=== PATIENT | male | born 1960 | race Caucasian/White ===

== ENCOUNTER 2016-10-25 19:46 | Inpatient (IN) ==
[2016-10-25] MEDS ORDERED: 0.9 % Sodium Chloride 1,000 ML IVC ONE ×3 (19:58→21:17)
[2016-10-25] MEDS ORDERED: Ondansetron 4 MG/2 ML VIAL IVP ONE (19:58)
--- NOTE | 2016-10-25 20:18 | Emergency Department Note ---
Disposition Clinical Impression: Colitis, Nodule on liver Pancreatitis Qualifiers: Chronicity: acute Pancreatitis type: unspecified pancreatitis type Acute pancreatitis complication: unspecified Qualified Code(s): K85.90 - Acute pancreatitis without necrosis or infection, unspecified Disposition: Admitted As Inpatient Condition: Fair Forms: ED Satisfaction Letter Time of Disposition: 00:10 GI Bleed HPI - General Chief complaint: ED GI Bleed Stated complaint: Rectal Bleeding Time Seen by Provider: 10/25/16 19:57 Source: patient Limitations: no limitations Nursing Notes Reviewed: Yes Vital Signs Reviewed: Yes - History of Present Illness HPI Narrative: Patient is a 56-year-old male who presents via EMS from the [place] for rectal bleeding. Patient states that 20 hours ago he noticed right red blood in his stool and continued to have repeated bouts. Patient states that he has lower abdomen irritation 3/10 constant. Patient reports anorexia and states that he has to force-feed himself. Patient states he has not had a colonoscopy in over 10 years. Patient has a history of CABG, diabetes and below knee amputation. Patient is on clopidogrel Patient denies alcohol abuse and states he has not had a drink in 3 months Pt Subjective Complaint: gross bloody stools Onset (ago): hour(s) Consistency: constant Severity: mild Improves with: nothing Worsens with: nothing - Related Data Home Medications Medication Instructions Recorded Confirmed Insulin Glargine [Lantus] 55 unit SQ BID 10/05/15 03/24/16 Metoprolol Succinate 100 mg PO DAILY 10/05/15 03/24/16 Nitroglycerin [Nitrostat] 0.4 mg SL AD PRN 10/05/15 03/24/16 OXcarbazepine [Oxcarbazepine] 600 mg PO QPM 10/05/15 03/24/16 Ranolazine [Ranexa] 1,000 mg PO BID 10/05/15 03/24/16 lamoTRIgine [Lamotrigine] 200 mg PO HS 10/05/15 03/24/16 Atorvastatin Calcium [Lipitor] 80 mg PO DAILY 11/19/15 03/24/16 Loratadine [Allergy Relief] 10 mg PO DAILY 01/20/16 03/24/16 Spironolactone [Aldactone] 12.5 mg PO DAILY 01/20/16 03/24/16 lamoTRIgine [Lamictal] 100 mg PO QAM 10/27/16 12/30/16 Torsemide [Demadex] 10 mg PO DAILY 03/24/16 03/24/16 Acetaminophen [Tylenol] 1,000 mg PO TID PRN 10/25/16 10/25/16 Exenatide Microspheres [Bydureon 2 mg SQ QWEEK 10/25/16 10/25/16 Pen] Gabapentin [Neurontin] 800 mg PO BID 10/25/16 10/25/16 Isosorbide MONOnitrate (24 HR) 90 mg PO DAILY 10/25/16 10/25/16 [Imdur] Lisinopril [Zestril] 5 mg PO DAILY 10/25/16 10/25/16 Polyethylene Glycol 3350 [MiraLAX] 17 gm PO DAILY 10/25/16 10/25/16 amLODIPine [Norvasc] 5 mg PO DAILY 10/25/16 10/25/16 Previous Rx's Medication Instructions Recorded Clopidogrel [Plavix] 75 mg PO DAILY #30 tablet 11/22/15 Nystatin Cream [Mycostatin Cream] 1 appl TP BID 21 Days 11/22/15 Allergies Allergy/AdvReac Type Severity Reaction Status Date / Time Penicillins Allergy See Verified 03/24/16 12:41 Comments All systems ED: reviewed and negative except as stated. Review of Systems: As Per HPI Constitutional: Denies: fever, chills, weakness Eyes: Denies: eye pain, eye discharge, vision change ENT ED: Denies: ear pain, throat pain Cardiovascular: Denies: chest pain, palpitations, dyspnea on exertion Respiratory: Denies: cough, dyspnea Gastrointestinal: Reports: abdominal pain, hematochezia. Denies: nausea, vomiting, diarrhea Genitourinary: Denies: urgency, dysuria Musculoskeletal: Denies: back pain, neck pain Integumentary: Denies: rash, abrasion Neurological: Denies: headache, weakness Psychiatric: Denies: anxiety, depression Endocrine: Denies: fatigue Hematological/Lymphatic: Denies: easy bruising Allergic/Immunologic: Denies: facial swelling Past Medical History - Past Medical History Attestation: Yes The following information was validated with the patient. Source: patient, old records reviewed Medical history: Reports: arthritis, coronary artery disease, diabetes, hyperlipidemia, hypertension, myocardial infarction, peripheral artery disease, other Surgical history: Reports: cholecystectomy, coronary bypass (CABG), orthopedic, other Psychiatric history: Reports: depression - Social History Smoking Status: Former smoker Smokeless Tobacco Status: Yes Alcohol use: Reports: none Drug use: Reports: none Physical Exam Vital Signs Temperature 98.9 F 10/25/16 19:50 Pulse Rate 74 10/25/16 19:50 Respiratory Rate 14 10/25/16 19:50 Blood Pressure 142/88 10/25/16 19:50 O2 Sat by Pulse Oximetry 100 10/25/16 19:50 Temperature 98.9 F 10/25/16 19:50 Pulse Rate 74 10/25/16 19:50 Respiratory Rate 14 10/25/16 19:50 Blood Pressure 142/88 10/25/16 19:50 O2 Sat by Pulse Oximetry 100 10/25/16 19:50 Oxygen Delivery Oxygen Delivery Room Air -General Appearance: Patient is a 56-year-old male who is alert and oriented 3 and appears to be in no acute distress. Patient sits up last jokes and is enjoyable and pushed talk with. Patient displays mild discomfort when he touches his lower abdominal ibanez. -Neurological exam: Cranial nerves II-12 intact, no focal deficits observed, strength equal 5/5 bilaterally in upper extremities and left lower extremity patient has prostatic on right lower extremity secondary to below-knee amputation - Head Head exam: atraumatic, normocephalic, normal inspection - Eye Eye exam: Present: normal appearance, PERRL, EOMI, negative for scleral icterus negative for conjunctival pallor - ENT ENT exam: normal exam, normal oropharynx, mucous membranes moist - Neck Neck exam: Present: normal inspection, full ROM, trachea midline, negative JVD - Chest Chest inspection: Present: Patient has bilateral equal rise and fall of chest wall. Non-tender to palpation. - Respiratory Respiratory exam: Clear to auscultation bilaterally without wheezes rales or rhonchi Cardiovascular Cardiovascular exam: Present: regular rate, normal rhythm, normal heart sounds, without murmurs rubs or gallops. - Abdominal Exam Abdominal exam: Present: soft, nondistended, tender to palpation across patient' s lower abdomen Bowel sounds normoactive throughout all 4 quadrants. Negative for hyper or hyperresonance. - Extremities Exam Extremities exam: Present: normal inspection, full ROM, patient has below the knee amputation of right lower extremity - Back Exam Back exam: Present: normal inspection, full ROM. Absent: tenderness, CVA tenderness (R), CVA tenderness (L) - Psychiatric Psychiatric exam: Present: normal affect, normal mood - Skin Skin exam: Present: warm, dry, intact, normal color - General Limitations: no limitations General appearance: alert - Head Head exam: atraumatic, normocephalic - Eye Eye exam: Present: normal appearance, PERRL, EOMI Course - Consultations Consultation #1: Dr. Lane hospitalist has accepted patient for admission after discussion of patient's comorbidities and current findings of pancreatitis and rectosigmoid colitis Time: 22:03 Vital Signs Temperature 98.9 F 10/25/16 19:50 Pulse Rate 74 10/25/16 19:50 Respiratory Rate 14 10/25/16 19:50 Blood Pressure 142/88 10/25/16 19:50 O2 Sat by Pulse Oximetry 100 10/25/16 19:50 Temperature 98.9 F 10/25/16 19:50 Pulse Rate 74 10/25/16 19:50 Respiratory Rate 14 10/25/16 19:50 Blood Pressure 142/88 10/25/16 19:50 O2 Sat by Pulse Oximetry 100 10/25/16 19:50 Oxygen Delivery Oxygen Delivery Room Air GI Bleed - [facility] Narrative Medical decision making narrative: Patient's presentation is concerning for lower GI bleed secondary to possible AVM, polyp, hemorrhoids, masses upper GI bleed, ischemic colitis, aortoenteric fistula. Patient's labs taking at the [place] shows highly elevated lipase greater than [address] of the abdomen and pelvis was taken which shows rectosigmoid colitis, concerning findings of the patient's liver show nodularity. Patient started on Cipro and Flagyl, IV fluids. Patient is received 1 L currently and is receiving a second followed by third liter. Recommend patient continues to receive IV fluids. Patient is comfortable and has no complaints at this time. Vital signs show mildly elevated blood pressure but otherwise everything is normal ranges. Patient's labs repeated here which shows a decrease in patient's lipase but patient has an elevation of troponin of 0.04. Patient's BUN and creatinine appears to be close to patient's baseline. Patient's EKG shows no alarming features. Patient has a paced rhythm. Patient does not complain of any chest pain symptoms or discomfort. Patient has a [address] Lane. His been briefed on patient's condition and treatment course and has accepted to continue treatment in hospital. Patient understands and agrees to the treatment plan. - Medical Records Medical records reviewed: Yes I reviewed the patient's medical records. - Lab Data Lab results reviewed: Yes I reviewed the patient's lab results. Lab results narrative: Short CBC 10/25/16 Range/Units 20:39 WBC 11.7 H (4.3-11.1) K/mcL Hgb 14.9 (12.9-16.9) g/dL Hct 45.8 (37.5-50.1) % Plt Count 155 (140-400) K/mcL Neutrophils # 8.0 (1.6-8.9) K/mcL BMP 10/25/16 Range/Units 20:39 Sodium 138 (136-145) mEq/L Potassium 4.4 (3.5-4.5) mEq/L Chloride 106 (98-109) mEq/L Carbon Dioxide 27 (19-29) mEq/L BUN 26 (8-26) mg/dL Creatinine 1.76 H (0.72-1.25) mg/dL Glucose 208 H (70-99) mg/dL Calcium 9.4 (8.6-10.8) mg/dL Cardiac Enzymes 10/25/16 Range/Units 20:39 Troponin I 0.04 H* (0-0.03) ng/mL - Radiology Data Radiology results reviewed: Yes I reviewed the patient's radiology results. Abdomen/Pelvis CT 10/25/16 19:58 IMPRESSION: Descending and rectosigmoid colitis, infectious or inflammatory. Morphology of the liver worrisome chronic disease as described above. D/ / Idalia Roche Cha, MD / Idalia Roche Cha, MD Interpreting Provider: Idalia Roche Cha, MD - EKG Data EKG attestation: Yes I reviewed and interpreted this EKG. EKG results narrative: EKG taken to October 2016 at 2031 hrs. shows a electronically ventricular paced rhythm at a rate of [address] elevations in any leads. Compared to previous EKG morphology exception of inverted T waves in anterior leads, on today's EKG versus previous EKG taken 03/24/2016. It is a paced rhythm and may be nondiagnostic.
[2016-10-25 20:54] LABS: Basophils % 0.3 %; Eosinophils # 0.2 K/mcL (0.0-0.6); Eosinophils % 1.5 %; Hematocrit 45.8 % (37.5-50.1); Hemoglobin 14.9 g/dL (12.9-16.9); Immature Granulocytes % 0.4 % (0-4); Lymphocytes # 2.5 K/mcL (0.6-4.6); Mean Corpuscular HGB Conc 32.5 g/dL (31.6-35.5); Mean Corpuscular Volume 92.3 fL (83.0-100.0); Mean Platelet Volume 12.4 fL (9.4-12.4); Monocytes % 8.2 %; Platelet Count 155 K/mcL (140-400); Red Blood Count 4.96 M/mcL (4.19-5.50); Red Cell Distribution Width 12.6 % (11.5-14.5); Segmented Neutrophils % 68.6 %
[2016-10-25 21:00] LABS: Prothrombin Time 11.3 Seconds (9.4-12.1)
[2016-10-25 21:03] LABS: Activated Partial Thrombo Time 29.2 Seconds (26.0-36.0)
[2016-10-25 21:08] LABS: Calcium 9.4 mg/dL (8.6-10.8); Potassium 4.4 mEq/L (3.5-4.5)
[2016-10-25] MEDS ORDERED: MetroNIDAZOLE 500 MG/100 ML 500 MG/100 ML BAG IVPB ONE (21:17)
--- NOTE | 2016-10-25 21:40 | Emergency Department Note ---
START Narrative - START START: I examined this patient and my medical decision-making was reviewed with the Resident Physician. I agree with the documented findings, disposition and treatment plan as described except to the extent set forth below. In summary 56 -year-old male with history of cholecystectomy presenting with concern for rectal bleeding. He has no history of colitis. He has no recent travel or diarrheal episodes. He denies recent antibiotic use. He presents with nonspecific abdominal wall tenderness as well as rectal bleeding which started today. He has stable hemoglobin. He was sent from the [facility] for further evaluation. He is Hemoccult-positive. Ultimately his son of colitis extensively on CAT scan. He also has a concerning liver morphology. This setting of elevated lipase. I would at this point proceed with admission for further evaluation of possible pancreatitis in the setting of colitis. This could represent underlying acute intra-abdominal pathology which is not clearly evident on CAT scan beyond findings of colitis. I would start empiric treatment with antibiotics including Cipro and Flagyl. Lactate was checked and was normal. IV fluids were initiated for acute kidney injury. Patient be admitted for further evaluation. I spent greater than 35 minutes of critical care time after sustaining this acute male suffering from gastrointestinal hemorrhage. This is including billable procedures. Remains in critical condition with high potential for life -threatening deterioration.
[2016-10-26] MEDS ORDERED: Acetaminophen 325 MG TABLET PO PRN (00:01)
[2016-10-26] MEDS ORDERED: Ondansetron 4 MG/2 ML VIAL IVP PRN (00:01)
--- NOTE | 2016-10-26 00:01 | Internal Med History&Physical ---
<Doug Leo - Last Filed: 10/26/16 01:52> Date of Encounter: 10/26/16 Time of Encounter: 23:15 Assessment and Plan (1) BRBPR (bright red blood per rectum) Current visit: Yes Status: Acute - Per patient, it started at midnight of 82 and persisted as he still had bright red blood with bowel movement at 10 pm. - Differential include hemorrhoid, colitis (infectious or inflammatory). - Closely monitor H&H. - Patient may benefit from outpatient colonoscopy after colitis is controlled. (2) Colitis Current visit: Yes Status: Acute - CT A/P suggests descending and rectosigmoid colitis, infectious or inflammatory. - Will check GI infection panel for further evaluation. - Continue Cipro anf Flagyl. (3) Nodule on liver Current visit: Yes Status: Acute - CT A/P showed the morphology of the liver somewhat worrisome for chronic disease with nodular contour, medial segment atrophy as well as hypertrophy of the lateral segment and caudate lobe. No focal hepatic lesion. - Liver US for further evaluation. (4) GERD (gastroesophageal reflux disease) Current visit: Yes Status: Acute - Patient reports worsening acid reflex for 2 weeks. - Will start omeprazole. Qualifiers: Esophagitis presence: esophagitis presence not specified Qualified Code(s) : K21.9 - Gastro-esophageal reflux disease without esophagitis (5) CAD (coronary artery disease) Current visit: No Status: Chronic - CAD s/p CABG. - Continue Plavix, statin, beta-emily and KIKO-i. Qualifiers: Coronary Disease-Associated Artery/Lesion type: bypass graft [place] vs. transplanted heart: [place] heart Associated angina: with unspecified angina Qualified Code(s): I25.709 - Atherosclerosis of coronary artery bypass graft(s) , unspecified, with unspecified angina pectoris (6) Heart failure with reduced ejection fraction Current visit: No Status: Acute - Known history of ischemic cardiomyopathy s/p ICD. - Echo on 09/23/15 showed LVEF 35% with mild diastolic dysfunction. - Continue home dose diuresis. Qualifiers: Heart failure chronicity: chronic Qualified Code(s): I50.22 - Chronic systolic (congestive) heart failure (7) Insulin dependent diabetes mellitus Current visit: No Status: Chronic - Will check Hgb A1C. - Insulin sliding scale. Internal Medicine - H&P: HPI Chief complaint: Bright red blood per rectum Admitted From: Emergency Dept Plans for Post Hospital Care: Home History of present illness: Mr. Voss is a 56 year old male with PMH of GERD, CKD stage 3, HTN, HLD, DM2, PAD s/p BKA, CAD s/p CABG and systolic CHF (LVEF 35% per echo on 09/23/15). Patient was sent from [place] for bright red blood per rectum. Patient reports it started at midnight of 10/25. It's associated with consistent bilateral lower quadrant pain described as "gas-like". Patient reports still having blood at his last bowel at 10 pm. Patient also reports fatigue, one-month history of anorexia and two-week history of worsening acid reflex. Patient denies fever, chills, chest pain, shortness of breath, cough, dysuria, hematuria. Patient denies having unusual or not-fully cooked food recently. Patient denies recent travel or sick contact. Patient states his last EGD & colonoscopy were done in late s and normal at that time. Patient states that [place] has been trying to arrange possible outpatient colonoscopy to be done here. Patient reports no known history of GI problem such as IBD or IBS. Patient is full code. CT A/P in ED suggests descending and rectosigmoid colitis, infectious or inflammatory. Patient was started on Cipro and Flagyl in ED. Past Med Surg Social Fam HX - Past Medical History Medical history: arthritis, coronary artery disease, diabetes, hyperlipidemia, hypertension, myocardial infarction, peripheral artery disease, other Psychiatric history: depression - Past Surgical History Surgical History: cholecystectomy, coronary bypass (CABG), orthopedic, other, AICD, pacemaker - Social History Smoking Status: Former smoker Smokeless Tobacco Status: Yes Alcohol use: none Drug use: none - Family History Mother Adopted: No Family Member Ethnicity: Non- Living Status: Hx Family Cardiac Disorders: Yes Hx Family Respiratory Disorders: No Hx Family Cancer: No Hx Family GI Disorders: Yes ([place]ri[place]) Hx Family Endocrine Disorder: Yes (DM) Hx Family Neuromuscular Disorders: No Hx Family Neurologic Disorders: No Hx Family HEENT Disorders: No Hx Family Autoimmune Disorders: No Father Living Status: Hx Family Cardiac Disorders: Yes ([place]) Hx Family Endocrine Disorder: Yes (DM) Internal Medicine - H&P: Meds Insulin Glargine [Lantus] 55 unit SQ BID 10/05/15 [History] Metoprolol Succinate 200 mg PO DAILY 10/05/15 [History] Nitroglycerin [Nitrostat] 0.4 mg SL Q5M PRN 10/05/15 [History] OXcarbazepine [Oxcarbazepine] 600 mg PO QPM 10/05/15 [History] Ranolazine [Ranexa] 1,000 mg PO BID 10/05/15 [History] lamoTRIgine [Lamotrigine] 200 mg PO HS 10/05/15 [History] Atorvastatin Calcium [Lipitor] 80 mg PO HS 11/19/15 [History] Clopidogrel [Plavix] 75 mg PO DAILY #30 tablet 11/22/15 [Rx] Nystatin Cream [Mycostatin Cream] 1 appl TP BID 21 Days 11/22/15 [Rx] Loratadine [Allergy Relief] 10 mg PO DAILY PRN 01/20/16 [History] Spironolactone [Aldactone] 25 mg PO DAILY 01/20/16 [History] lamoTRIgine [Lamictal] 100 mg PO QAM 01/20/16 [History] Torsemide [Demadex] 10 mg PO DAILY 03/24/16 [History] Acetaminophen [Tylenol] 1,000 mg PO TID PRN 10/25/16 [History] Exenatide Microspheres [Bydureon Pen] 2 mg SQ QWEEK 10/25/16 [History] Gabapentin [Neurontin] 800 mg PO BID 10/25/16 [History] Isosorbide MONOnitrate (24 HR) [Imdur] 90 mg PO DAILY 10/25/16 [History] Lisinopril [Zestril] 5 mg PO DAILY 10/25/16 [History] Polyethylene Glycol 3350 [MiraLAX] 17 gm PO DAILY 10/25/16 [History] amLODIPine [Norvasc] 5 mg PO DAILY 10/25/16 [History] Allergies Penicillins Allergy (Verified 03/24/16 12:41) See Comments Pt does not know what reaction was. All Systems PM: A 10-system review of systems was performed and is negative for pertinent findings except as documented above in the HPI. - Constitutional Constitutional: anorexia, fatigue, no chills, no fever(s) - EENT Eyes: no change in vision Ears: no decreased hearing Nose, mouth and throat: no dysphagia, no odynophagia - Cardiovascular Cardiovascular ROS IM: no chest pain, no diaphoresis, no syncope - Respiratory Respiratory: no cough, no dyspnea, no hemoptysis - Gastrointestinal Gastrointestinal: as per HPI - Genitourinary Genitourinary ROS male: no difficulty urinating, no dysuria, no hematuria - Musculoskeletal Musculoskeletal ROS IM: no arthralgias, no myalgias - Integumentary Integumentary IM: no pruritus, no rash - Neurological Neurological ROS: numbness (Chronic for left lower leg), no focal weakness - Hematologic/Lymphatic Hematologic/Lymphatic: no easy bleeding, no easy bruising - Constitutional Vitals: Temp Pulse Resp BP Pulse Ox 98.0 F 74 17 129/80 96 10/25/16 22:58 10/25/16 22:58 10/25/16 22:58 10/25/16 22:58 10/25/16 22:58 General appearance: Present: cooperative, A&O X 3, no acute distress, answers questions appropriately - Head Head exam: Present: atraumatic, normocephalic - Eye Eye exam: Present: EOMI, PERRL, conjuntiva pink, sclera anicteric - Neck Neck exam general surgery: Present: supple, trachea midline. Absent: lymphadenopathy - Respiratory Respiratory exam: Present: CTAB. Absent: accessory muscle use, rales, rhonchi, wheezes - Cardiovascular Cardiovascular exam: Present: RRR, +S1, +S2. Absent: diastolic murmur, gallop, rubs, systolic murmur - GI/Abdominal GI/Abdominal exam: Present: normal bowel sounds, soft, tenderness (Mild tenderness at lower quadrants.), no peritoneal signs. Absent: distended - Extremities Exam Extremities exam: Present: warm, radial pulses palpable and symetrical. Absent : calf tenderness, cyanotic, pedal edema Additional comments: Right BKA. - Neurological Exam Neurological exam: Present: CN II-XII intact, oriented X3, no focal deficits. Absent: pronater drift, facial droop, speech deficit - Skin Skin exam: Present: dry, intact, warm Internal Med - H&P Results - Labs CBC & Chem 7: 10/25/16 20:39 10/25/16 20:[address] <[address] A - Last Filed: 10/26/16 03:26> Date of Encounter: 10/25/16 Assessment and Plan (1) CKD (chronic kidney disease) stage 3, GFR 30-59 ml/min Current visit: Yes Status: Chronic stable and at baseline, will avoid nephrotoxins, renally dose all medications, follow BMP (2) Elevated troponin I level Current visit: Yes Status: Acute Chronically elevated, related to his CKD leading to poor clearance, we will follow with AM labs Internal Medicine - H&P: HPI History of present illness: Mr. Voss is a 56 year old male Past Med Surg Social Fam HX - Past Medical History Medical history: renal disease (CKD stage 3) All Systems PM: A 10-system review of systems was performed and is negative for pertinent findings except as documented above in the HPI. - Constitutional Vitals: Temp Pulse Resp BP Pulse Ox 98.0 F 74 17 129/80 96 10/25/16 22:58 10/25/16 22:58 10/25/16 22:58 10/25/16 22:58 10/25/16 22:58 Internal Med - H&P Results - Labs CBC & Chem 7: 10/25/16 20:39 10/25/16 20:39 - Diagnostic Studies CT scan - abdomen Status: image reviewed by me - Attending Attestation I personally interviewed and examined this patient and my medical decision- making was reviewed with the Resident Physician. I agree with the documented findings, disposition and treatment plan as described. History did not reveal any possibility of overt infectious etiology, though no family hx of inflammatory bowel disease he will benefit from colonoscopy as outpatient for further evaluation upon discharge home. Salo Lane MD, MPH Hospitalist
[2016-10-26] MEDS ORDERED: 0.9 % Sodium Chloride 1,000 ML IVC SCH ×2 (00:15→00:35)
[2016-10-26] MEDS ORDERED: Nitroglycerin 0.4 MG TAB.SUBL SL PRN (00:35)
[2016-10-26] MEDS ORDERED: D5% in Water 1,000 ML IVC PRN (01:43)
[2016-10-26] MEDS ORDERED: Dextrose Gel 15 GM PO PRN ×2 (01:43)
[2016-10-26] MEDS ORDERED: *HR* Dextrose 50 % in Water (Syg) 50 ML SYRINGE IVP PRN (01:43)
[2016-10-26 04:28] LABS: Adenovirus F 40/41 PCR Not detected (Not detect); Astrovirus PCR Not detected (Not detect); C.difficile Toxin A/B by PCR Not detected (Not detect); Campylobacter by PCR Not detected (Not detect); Cryptosporidium by PCR Not detected (Not detect); Cyclospora cayetanensis PCR Not detected (Not detect); E. coli O157 by PCR Not detected (Not detect); Entamoeba histolytica PCR Not detected (Not detect); Enteroaggregative E.coli(EAEC) Not detected (Not detect); Enteropathogenic E.coli(EPEC) Not detected (Not detect); Enterotoxigenic E.coli (ETEC) Not detected (Not detect); Giardia lamblia PCR Not detected (Not detect); Norovirus GI/GII PCR Not detected (Not detect); Plesiomonas shigelloides PCR Not detected (Not detect); Rotavirus A PCR Not detected (Not detect); Salmonella PCR Not detected (Not detect); Sapovirus PCR Not detected (Not detect); Shig/EnteroinvasiveE coli EIEC Not detected (Not detect); Shigalike tox-prod E coli STEC Not detected (Not detect); Vibrio PCR Not detected (Not detect); Vibrio cholerae PCR Not detected (Not detect); Yersinia enterocolitica PCR Not detected (Not detect)
[2016-10-26] MEDS ORDERED: Insulin LISPRO 300 UNITS/3 ML VIAL SQ SCH ×3 (06:00→21:00)
[2016-10-26 06:12] LABS: Basophils % 0.3 %; Eosinophils # 0.2 K/mcL (0.0-0.6); Eosinophils % 1.7 %; Hematocrit 43.6 % (37.5-50.1); Hemoglobin 14.2 g/dL (12.9-16.9); Immature Granulocytes % 0.3 % (0-4); Lymphocytes # 2.1 K/mcL (0.6-4.6); Lymphocytes % 21.6 %; Mean Corpuscular HGB Conc 32.6 g/dL (31.6-35.5); Mean Corpuscular Hemoglobin 30.1 pg (28.0-33.3); Mean Corpuscular Volume 92.4 fL (83.0-100.0); Mean Platelet Volume 12.7 fL (9.4-12.4); Monocytes # 0.7 K/mcL (0.0-1.3); Monocytes % 7.3 %; Neutrophils # 6.7 K/mcL (1.6-8.9); Platelet Count 109 K/mcL (140-400); Red Blood Count 4.72 M/mcL (4.19-5.50); Red Cell Distribution Width 12.7 % (11.5-14.5); Segmented Neutrophils % 68.8 %
[2016-10-26 06:27] LABS: Albumin 3.3 g/dL (3.5-5.0); Bilirubin,Total 0.7 mg/dL (0.2-1.2); Calcium 8.8 mg/dL (8.6-10.8); Globulin 3.3 g/dL (2.4-3.5); Potassium 3.9 mEq/L (3.5-4.5); Total Protein 6.6 g/dL (6.0-8.3)
[2016-10-26 06:35] LABS: Hemoglobin A1C 7.6 %
[2016-10-26] MEDS: Isosorbide MONOnitrate (24 HR) 30 MG TAB.ER.24H PO SCH (08:47)
[2016-10-26] MEDS: lamoTRIgine 100 MG TABLET PO SCH (08:48)
[2016-10-26] MEDS: Ranolazine 500 MG TAB.ER.12H PO SCH ×2 (08:48→20:48)
[2016-10-26] MEDS: amLODIPine 5 MG TABLET PO SCH (08:48)
[2016-10-26] MEDS: Metoprolol XL (24 HR) Succ 50 MG TAB.ER.24H PO SCH (08:48)
[2016-10-26] MEDS: MetroNIDAZOLE 500 MG/100 ML 500 MG/100 ML BAG IVPB SCH ×3 (08:49→23:52)
[2016-10-26] MEDS: Spironolactone 25 MG TABLET PO SCH (08:51)
[2016-10-26] MEDS: Nystatin Cream 15 GM TUBE TP SCH ×2 (08:52→20:10)
[2016-10-26] MEDS ORDERED: Torsemide 20 MG TABLET PO SCH (09:00)
[2016-10-26] MEDS ORDERED: Gabapentin 400 MG CAPSULE PO SCH (09:00)
--- NOTE | 2016-10-26 10:28 | Internal Med Progress Note ---
Date of Encounter: 10/26/16 Time of Encounter: 10:25 - Assessment and plan (1) BRBPR (bright red blood per rectum) Current Visit: Yes Status: Acute Assessment and plan: Mostly due to ishcemic colitis So far stable Hb Cont close monitoring Held ASA / Plavix - avoid anti platelet medication Consulted GI Dr. Grier.since pt does have stable Hb..cont alexis monitoring given his severe vasculao path history - it could be ishcemic colitis started him on clear liquid diet cont gentle hydration only due to his CHF (2) Colitis Current Visit: Yes Status: Acute Assessment and plan: mostly ishcemic colitis however will cont him on prophylactic abx with Cipro anf Flagyl for 7 days (3) GERD (gastroesophageal reflux disease) Current Visit: Yes Status: Acute Assessment and plan: on PPI Qualifiers: Esophagitis presence: esophagitis presence not specified Qualified Code(s) : K21.9 - Gastro-esophageal reflux disease without esophagitis (4) Pancreatitis Current Visit: Yes Status: Acute Assessment and plan: Unclear etiology will check FLP in AM Reviewed U/S of RUQ - no acute changes trend on lipase Qualifiers: Chronicity: acute Pancreatitis type: unspecified pancreatitis type Acute pancreatitis complication: unspecified Qualified Code(s): K85.90 - Acute pancreatitis without necrosis or infection, unspecified (5) CAD (coronary artery disease) Current Visit: No Status: Chronic Assessment and plan: Held ASA / Plavix due to GI bleed resumed other home meds Qualifiers: Coronary Disease-Associated Artery/Lesion type: bypass graft [place] vs. transplanted heart: [place] heart Associated angina: with unspecified angina Qualified Code(s): I25.709 - Atherosclerosis of coronary artery bypass graft(s) , unspecified, with unspecified angina pectoris (6) Systolic CHF, chronic Current Visit: Yes Status: Chronic Assessment and plan: Not in exacerbation held diuretics for now since he does have GI Bleed resumed other home meds s/p AICD (7) CKD (chronic kidney disease) stage 3, GFR 30-59 ml/min Current Visit: Yes Status: Chronic Assessment and plan: stable (8) Diabetes mellitus Current Visit: Yes Status: Acute Assessment and plan: on ISS Qualifiers: Qualified Code(s): E08.22 - Diabetes mellitus due to underlying condition with diabetic chronic kidney disease (9) DVT prophylaxis Current Visit: Yes Status: Acute Assessment and plan: placed on SCD's only due to GI bleed - Subjective Interval history: Mr. Voss is a 56 year old male with PMH of GERD, CKD stage 3, HTN, HLD, DM2, PAD s/p BKA, CAD s/p CABG and systolic CHF (LVEF 35% per echo on 09/23/15). Patient was sent from [place] for bright red blood per rectum. Patient reports it started at midnight of 10/25. It's associated with consistent bilateral lower quadrant pain described as "gas-like". Pt was admitted for acute bright red blood per rectum with recto sigmoid colitis. Pt stated he still has bloody stools, however pain is little better today. He wants to eat now. Denied any CP / SOB. Denied any similar episodes in the past. Did have constipation history. - Constitutional Vitals: Temp Pulse Resp BP Pulse Ox 98.1 F 75 16 120/78 97 10/26/16 07:53 10/26/16 07:53 10/26/16 07:53 10/26/16 07:53 10/26/16 08:16 General appearance: Present: cooperative, A&O X 3, no acute distress, answers questions appropriately - Head Head exam: Present: atraumatic, normal inspection - Respiratory Respiratory exam: Present: decreased breath sounds. Absent: accessory muscle use, rales, rhonchi, wheezes - Cardiovascular Cardiovascular exam: Present: RRR, +S1, +S2. Absent: systolic murmur - GI/Abdominal GI/Abdominal exam: Present: normal bowel sounds, soft, tenderness (mild discomfort lower abdomne region.). Absent: rebound, rigid, splenomegaly - Extremities Exam Extremities exam: Absent: pedal edema, tenderness - Psychiatric Psychiatric exam: Present: normal affect, normal mood Internal Medicine: Result - Labs CBC & Chem 7: 10/26/16 05:42 10/26/16 05:42 Labs: Short CBC 10/26/16 Range/Units 05:42 WBC 9.7 (4.3-11.1) K/mcL Hgb 14.2 (12.9-16.9) g/dL Hct 43.6 (37.5-50.1) % Plt Count 109 L (140-400) K/mcL Neutrophils # 6.7 (1.6-8.9) K/mcL BMP 10/26/16 05:42 Sodium 139 Potassium 3.9 Chloride 109 Carbon Dioxide 26 BUN 21 Creatinine 1.56 H Glucose 134 H Calcium 8.8 Liver Function 10/26/16 Range/Units 05:42 Total Bilirubin 0.7 (0.2-1.2) mg/dL AST 17 (5-34) Units/L ALT 16 (0-55) Units/L Alkaline Phosphatase 71 (38-126) Units/L Albumin 3.3 L (3.5-5.0) g/dL - ABG Interpretation ABG results: PT/INR, D-dimer PT 11.3 Seconds (9.4-12.1) 10/25/16 20:39 - Impressions Impressions Liver Ultrasound 10/26/16 08:00 IMPRESSION: Heterogeneous echotexture throughout the liver, suggesting diffuse hepatocellular disease such as cirrhosis. D/ / Alfredo Ferrara MD / Alfredo Ferrara MD Interpreting Provider: Alfredo Ferrara MD - Diagnostic Studies CT scan - abdomen Status: image reviewed by me Consult Discharge Plan - Plan [facility]errals: [facility] [Primary Care Provider] -
--- NOTE | 2016-10-26 11:44 | Gastroenterology Consult Note ---
Date of Encounter: 10/26/16 Time of Encounter: 10:35 - Assessment and plan (1) Pancreatitis Current Visit: Yes Status: Acute Assessment and plan: supportive care. Qualifiers: Chronicity: acute Pancreatitis type: unspecified pancreatitis type Acute pancreatitis complication: unspecified Qualified Code(s): K85.90 - Acute pancreatitis without necrosis or infection, unspecified (2) Colitis Current Visit: Yes Status: Acute Assessment and plan: Likely ischemic, resolving. Plan for OTPT scopes. - Time Spent With Patient Total time spent is greater than 50% in coordination of care (as documented) at patient's floor/unit and/or counseling patient: less than 15 minutes GI History of Present Illness - Data of Consult Patient: new to practice Consult date: 10/26/16 Requesting Physician: Mesfin Stevens MD - Consult Narrative Reason for consult: colitis History of present illness: Mr. Voss is a 56 year old male with PMH of GERD, CKD stage 3, HTN, HLD, DM2, PAD s/p BKA, CAD s/p CABG and systolic CHF (LVEF 35% per echo on 09/23/15). Patient was sent from [place] for bright red blood per rectum. Patient reports it started at midnight of 8. It's associated with consistent bilateral lower quadrant pain described as "gas-like". Patient reports still having blood at his last bowel at 10 pm. Patient also reports fatigue, one-month history of anorexia and two-week history of worsening acid reflex. Patient denies fever, chills, chest pain, shortness of breath, cough, dysuria, hematuria. Patient states his last EGD & colonoscopy were done in late and normal at that time. Patient states that [place] has been trying to arrange possible outpatient colonoscopy to be done here. Patient reports no known history of GI problem such as IBD or IBS. Patient is full code. CT A/P in ED suggests descending and rectosigmoid colitis, infectious or inflammatory. Patient was started on Cipro and Flagyl in ED. Denies dysphagia, admits some dyspepsia that he treats at home that has worsened lately. No N/V. BM variable and have been all his life, going several days between movements, then multiple times during the same day until bowel is emptied. Some BRB noted occasionally, no black stools. No family hx of CC to his recollection. Colonoscopy: 90s - wnl per patient EGD: 90s - wnl per patient Past Med Surg Social Fam HX - Past Medical History Medical history: renal disease (CKD stage 3) Psychiatric history: depression - Past Surgical History Surgical History: cholecystectomy, coronary bypass (CABG), orthopedic, other, AICD, pacemaker - Social History Smoking Status: Former smoker Smokeless Tobacco Status: Yes Alcohol use: none Drug use: none - Family History Father Living Status: Hx Family Cardiac Disorders: Yes ([place]) Hx Family Endocrine Disorder: Yes (DM) Mother Adopted: No Family Member Ethnicity: Non- Living Status: Hx Family Cardiac Disorders: Yes Hx Family Respiratory Disorders: No Hx Family Cancer: No Hx Family GI Disorders: Yes ([place]ri[place]) Hx Family Endocrine Disorder: Yes (DM) Hx Family Neuromuscular Disorders: No Hx Family Neurologic Disorders: No Hx Family HEENT Disorders: No Hx Family Autoimmune Disorders: No - Gastrointestinal NSAID use: None noted Anticoagulation Use: PLAVIX Number of BM Per Day: variable Gastrointestinal: Present: abdominal pain, dyspepsia, hematochezia - Constitutional Constitutional: anorexia - EENT Eyes: as per HPI Ears: Present: as per HPI Nose, mouth and throat: Present: as per HPI - Cardiovascular Cardiovascular ROS: Present: as per HPI - Respiratory Respiratory IM: Present: as per HPI - Neurological ROS Neurological GI: Present: as per HPI - Hematologic/Lymphatic Hematologic/Lymphatic pediatric: Present: as per HPI - Musculoskeletal Musculoskeletal ROS GI: Present: as per HPI - Integumentary Integumentary GI: Present: as per HPI - Psychiatric ROS Psychiatric GI: Present: as per HPI - Endocrine Endocrine IM: Present: as per HPI - Constitutional Vitals: Temp Pulse Resp BP Pulse Ox 98.1 F 75 16 120/78 97 10/26/16 07:53 10/26/16 07:53 10/26/16 07:53 10/26/16 07:53 10/26/16 08:16 General appearance: Present: cooperative, A&O X 3, no acute distress, answers questions appropriately - Head Head exam: Present: atraumatic, normocephalic - Eye Eye exam: Present: normal appearance, sclera anicteric - ENT ENT exam: Present: mucous membranes moist - Neck Neck exam general surgery: Present: normal inspection, trachea midline - Respiratory Respiratory exam: Present: CTAB - Cardiovascular Cardiovascular exam: Present: RRR, +S1, +S2 - GI/Abdominal GI/Abdominal exam: Present: normal bowel sounds, soft, tenderness, no peritoneal signs - Rectal Rectal exam: Present: deferred - Extremities Exam Additional comments: BKA - Neurological Exam Neurological exam: Present: no focal deficits - Psychiatric Psychiatric exam: Present: normal affect, normal mood - Skin Skin exam: Present: dry, intact, normal color, warm Results - Labs CBC & Chem 7: 10/26/16 05:42 10/26/16 05:42 Labs: Last Result Calcium 8.8 mg/dL (8.6-10.8) 10/26/16 05:42 Troponin I 0.04 ng/mL (0-0.03) H* 10/25/16 20:39 Entire Visit Hgb 14.2 g/dL (12.9-16.9) 10/26/16 05:42 Hct 43.6 % (37.5-50.1) 10/26/16 05:42 PT 11.3 Seconds (9.4-12.1) 10/25/16 20:39 Total Bilirubin 0.7 mg/dL (0.2-1.2) 10/26/16 05:42 AST 17 Units/L (5-34) 10/26/16 05:42 ALT 16 Units/L (0-55) 10/26/16 05:42 Lipase 228 Units/L (8-78) H 10/25/16 20:39 - ABG ABG results: PT/INR, D-dimer PT 11.3 Seconds (9.4-12.1) 10/25/16 20:39 - Impressions Impressions Liver Ultrasound 10/26/16 08:00 IMPRESSION: Heterogeneous echotexture throughout the liver, suggesting diffuse hepatocellular disease such as cirrhosis. D/ / Alfredo Ferrara MD / Alfredo Ferrara MD Interpreting Provider: Alfredo Ferrara MD Consult Discharge Plan - Plan [facility]errals: [facility] [Primary Care Provider] -
[2016-10-26 13:43] LABS: Hematocrit 40.1 % (37.5-50.1); Hemoglobin 13.2 g/dL (12.9-16.9)
[2016-10-26] MEDS: Insulin DETEMIR 100 UNIT/ML X5UNITS SQ SCH ×2 (14:46→20:50)
[2016-10-26] MEDS: Insulin LISPRO 300 UNITS/3 ML VIAL SQ SCH (17:07)
[2016-10-26] MEDS ORDERED: OXcarbazepine 150 MG TABLET PO SCH (18:00)
[2016-10-26] MEDS: Gabapentin 300 MG CAPSULE PO SCH (20:47)
[2016-10-26] MEDS ORDERED: lamoTRIgine 100 MG TABLET PO SCH (21:00)
[2016-10-26 21:50] LABS: Hematocrit 40.7 % (37.5-50.1); Hemoglobin 13.3 g/dL (12.9-16.9)
[2016-10-27 05:05] LABS: Basophils % 0.5 %; Eosinophils # 0.2 K/mcL (0.0-0.6); Eosinophils % 2.1 %; Hemoglobin 13.7 g/dL (12.9-16.9); Immature Granulocytes % 0.3 % (0-4); Lymphocytes # 2.5 K/mcL (0.6-4.6); Mean Corpuscular HGB Conc 33.4 g/dL (31.6-35.5); Mean Corpuscular Hemoglobin 30.6 pg (28.0-33.3); Mean Corpuscular Volume 91.5 fL (83.0-100.0); Mean Platelet Volume 12.5 fL (9.4-12.4); Monocytes # 0.7 K/mcL (0.0-1.3); Monocytes % 8.8 %; Neutrophils # 4.2 K/mcL (1.6-8.9); Platelet Count 108 K/mcL (140-400); Red Blood Count 4.48 M/mcL (4.19-5.50); Red Cell Distribution Width 12.9 % (11.5-14.5); Segmented Neutrophils % 55.3 %
[2016-10-27 05:29] LABS: Albumin 3.3 g/dL (3.5-5.0); Bilirubin,Total 0.7 mg/dL (0.2-1.2); Calcium 9.1 mg/dL (8.6-10.8); Chol/HDL Ratio 5.5 (0-4.9); Globulin 3.2 g/dL (2.4-3.5); Magnesium 1.6 mg/dL (1.6-2.6); Total Protein 6.5 g/dL (6.0-8.3)
--- NOTE | 2016-10-27 07:48 | Electrocardiograph Report ---
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
--- NOTE | 2016-10-27 08:59 | Discharge Summary ---
Date of Encounter: 10/27/16 Time of Encounter: 08:54 - Discharge Diagnosis (1) BRBPR (bright red blood per rectum) Priority: Primary Status: Acute (2) Colitis Priority: Primary Status: Acute (3) GERD (gastroesophageal reflux disease) Priority: Secondary Status: Acute Qualifiers: Esophagitis presence: esophagitis presence not specified Qualified Code(s) : K21.9 - Gastro-esophageal reflux disease without esophagitis (4) Pancreatitis Priority: Secondary Status: Acute Qualifiers: Chronicity: acute Pancreatitis type: unspecified pancreatitis type Acute pancreatitis complication: unspecified Qualified Code(s): K85.90 - Acute pancreatitis without necrosis or infection, unspecified (5) CAD (coronary artery disease) Priority: Secondary Status: Chronic Qualifiers: Coronary Disease-Associated Artery/Lesion type: bypass graft [place] vs. transplanted heart: [place] heart Associated angina: with unspecified angina Qualified Code(s): I25.709 - Atherosclerosis of coronary artery bypass graft(s) , unspecified, with unspecified angina pectoris (6) Systolic CHF, chronic Priority: Secondary Status: Chronic (7) CKD (chronic kidney disease) stage 3, GFR 30-59 ml/min Priority: Secondary Status: Chronic (8) Diabetes mellitus Priority: Secondary Status: Acute Qualifiers: Qualified Code(s): E08.22 - Diabetes mellitus due to underlying condition with diabetic chronic kidney disease; N18.3 - Chronic kidney disease, stage 3 ( moderate); 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 - Discharge Medications Prescriptions: Ciprofloxacin HCl [Cipro] 250 mg PO BID #10 tab metroNIDAZOLE [Flagyl] 500 mg PO TID #15 tablet Omeprazole [PriLOSEC] 20 mg PO DAILY #30 cap Home Medications: Insulin Glargine [Lantus] 55 unit SQ BID 10/05/15 [History] Metoprolol Succinate 200 mg PO DAILY 10/05/15 [History] Nitroglycerin [Nitrostat] 0.4 mg SL Q5M PRN 10/05/15 [History] OXcarbazepine [Oxcarbazepine] 600 mg PO QPM 10/05/15 [History] Ranolazine [Ranexa] 1,000 mg PO BID 10/05/15 [History] lamoTRIgine [Lamotrigine] 200 mg PO HS 10/05/15 [History] Atorvastatin Calcium [Lipitor] 80 mg PO HS 11/19/15 [History] Nystatin Cream [Mycostatin Cream] 1 appl TP BID 21 Days 11/22/15 [Rx] Loratadine [Allergy Relief] 10 mg PO DAILY PRN 01/20/16 [History] Spironolactone [Aldactone] 25 mg PO DAILY 01/20/16 [History] lamoTRIgine [Lamictal] 100 mg PO QAM 01/20/16 [History] Torsemide [Demadex] 10 mg PO DAILY 03/24/16 [History] Acetaminophen [Tylenol] 1,000 mg PO TID PRN 10/25/16 [History] Exenatide Microspheres [Bydureon Pen] 2 mg SQ QWEEK 10/25/16 [History] Gabapentin [Neurontin] 800 mg PO BID 10/25/16 [History] Isosorbide MONOnitrate (24 HR) [Imdur] 90 mg PO DAILY 10/25/16 [History] Lisinopril [Zestril] 5 mg PO DAILY 10/25/16 [History] amLODIPine [Norvasc] 5 mg PO DAILY 10/25/16 [History] Ciprofloxacin HCl [Cipro] 250 mg PO BID #10 tab 10/27/16 [Rx] Clopidogrel [Plavix] 75 mg PO DAILY #30 tablet 10/27/16 [Rx] Omeprazole [PriLOSEC] 20 mg PO DAILY #30 cap 10/27/16 [Rx] Polyethylene Glycol 3350 [MiraLAX] 17 gm PO DAILY PRN #0 10/27/16 [Rx] metroNIDAZOLE [Flagyl] 500 mg PO TID #15 tablet 10/27/16 [Rx] Allergies/Adverse Reactions: Allergies Penicillins Allergy (Verified 03/24/16 12:41) See Comments Pt does not know what reaction was. 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 Thompson in 1-2 weeks No Aspirin and Plavix for next 5 days. - Diet and Activity Activity: increase activity as tolerated Diet: low salt diet Hospital course: Mr. Voss is a 56 year old male with PMH of GERD, CKD stage 3, HTN, HLD, DM2, PAD s/p BKA, CAD s/p CABG and systolic CHF (LVEF 35% per echo on 09/23/15). Patient was sent from [place] for bright red blood per rectum. Patient reports it started at midnight of 10/25. It's associated with consistent bilateral lower quadrant pain described as "gas-like". Pt was admitted for acute bright red blood per rectum with recto sigmoid colitis. We did held his Plavix and started him on empirical abx with Cipro and Flagyl. He was started on clear liquid diet y/d and advanced to low residue diet today. He did not have any more BM / Blood in his stools since last night. His BRBPR / Colitis seems to be most likely ishchemic colitis. Pt was eveluated by GI Dr. Thompson, who recommend the pt to f/u with him as an out pt for EGD and Colonoscopy. His HB is stable at 13.7. So will d/c him home in stable condition with another 5 days PO abx Cipro and Flagyl. Recommend to hold anti platelet meds Plavix till 11/02/16. - Time Spent with Patient Total time spent providing and/or coordinating discharge services: - Constitutional Vitals: Temp Pulse Resp BP Pulse Ox 97.6 F 73 16 108/68 98 10/27/16 07:18 10/27/16 07:18 10/27/16 07:18 10/27/16 07:18 10/27/16 07:18 General appearance: Present: cooperative, A&O X 3, no acute distress, answers questions appropriately - Head Head exam: Present: atraumatic, normal inspection - Neck Neck exam general surgery: Present: supple. Absent: lymphadenopathy, normal inspection - Respiratory Respiratory exam: Present: decreased breath sounds. Absent: rales, respiratory distress, rhonchi, wheezes - Cardiovascular Cardiovascular exam: Present: RRR, +S1, +S2. Absent: diastolic murmur, gallop, rubs, systolic murmur - GI/Abdominal GI/Abdominal exam: Present: normal bowel sounds, soft, no peritoneal signs. Absent: distended, tenderness - Extremities Exam Extremities exam: Absent: calf tenderness, pedal edema, tenderness Additional comments: Rt BKA - Psychiatric Psychiatric exam: Present: normal affect, normal mood - VTE Documentation of Mechanical Device: Graduated compression elastic hosiery
[2016-10-27] MEDS: Insulin LISPRO 300 UNITS/3 ML VIAL SQ SCH ×2 (09:25→11:49)
[2016-10-27] MEDS: Ranolazine 500 MG TAB.ER.12H PO SCH (09:25)
[2016-10-27] MEDS: amLODIPine 5 MG TABLET PO SCH (09:25)
[2016-10-27] MEDS: Gabapentin 300 MG CAPSULE PO SCH (09:25)
[2016-10-27] MEDS: Nystatin Cream 15 GM TUBE TP SCH (09:26)
[2016-10-27] MEDS: Spironolactone 25 MG TABLET PO SCH (09:26)
[2016-10-27] MEDS: Metoprolol XL (24 HR) Succ 50 MG TAB.ER.24H PO SCH (09:26)
[2016-10-27] MEDS: lamoTRIgine 100 MG TABLET PO SCH (09:26)
[2016-10-27] MEDS: Isosorbide MONOnitrate (24 HR) 30 MG TAB.ER.24H PO SCH (09:28)
[2016-10-27] MEDS: MetroNIDAZOLE 500 MG/100 ML 500 MG/100 ML BAG IVPB SCH (09:29)
[2016-10-27] MEDS: Insulin DETEMIR 100 UNIT/ML X5UNITS SQ SCH (09:29)
[2016-10-27 10:57] VITALS: BP 104/63
== END 2016-10-27 12:47 | disposition home or self-care (01) | DRG 393 ==
LOC: EMEROO 19:46 → 2ANU 22:24
PROVIDERS: ADMIT Internal Medicine; ATTEND Internal Medicine